=== PATIENT | female | born 1985 | race Caucasian/White ===

== ENCOUNTER 2023-05-07 13:19 | Emergency (ER) | payer OTHER, MEDICAID, SELFPAY ==
[2023-05-07 14:08] VITALS: BP 118/69; PULSE 90; RESP 18; TEMP 36.3; O2SAT 100; BMI 18.8
[2023-05-07 17:45] VITALS: BP 113/72; PULSE 77; O2SAT 100
--- NOTE | 2023-05-07 18:34 | ED_ITS ---
HPI - Skin/Abscess/Foreign Bdy <Ankush Cleveland PA-C - Last Filed: 05/07/23 18:40> General Chief complaint: Skin/Abscess/Foreign Body Stated complaint: SEVERE ITCHING,INFECTED ARE L RING FINGER Time Seen by Provider: 05/07/23 17:20 Source: patient Mode of arrival: Ambulatory Limitations: no limitations History of Present Illness HPI narrative: 38-year-old female with no reported past medical history presents to the ED with a few days of all over itching. Patient's partner was diagnosed with scabies recently, prescribe permethrin. Patient states that her partner and herself did 1 dose of the permethrin, felt better the next day, however a couple of days later the rash and itching was back. Patient denies fever, chills, chest pain, shortness of breath, nausea, vomiting, lightheadedness, dizziness, syncope, abdominal pain, dysuria. Patient states that she recently moved from [place] to [place], stopping at multiple hotels on the way, suspects she might have contracted scabies from 1 of the hotels. Patient also states that she has a retained dog hair in between 2 of her fingers of the left hand, which has been bothering her for months. Denies any discharge, redness, warmth at the site. Related Data Previous Rx's Medication Instructions Recorded ivermectin 3 mg tablet 9,979 mcg PO QWEEK 3 doses #14 tabs 05/07/23 permethrin 5 % topical cream 1 applic topical Q7D 4 days #120 05/07/23 grams Allergies Allergy/AdvReac Type Severity Reaction Status Date / Time tetracycline Allergy Vomiting Verified 05/07/23 14:08 Review of Systems <Ankush Cleveland PA-C - Last Filed: 05/07/23 18:40> Review of Systems ROS Unobtainable: All systems reviewed & are unremarkable except as noted in HPI and below Constitutional Constitutional: Denies chills, Denies fatigue, Denies fever(s), Denies frequent falls, Denies lethargy and Denies weakness Eyes Eyes: Denies change in vision, Denies eye discharge, Denies irritation and Denies loss of vision ENT Ears, Nose, Mouth, and Throat: Denies change in voice, Denies dizziness, Denies neck pain, Denies sore throat and Denies throat swelling Cardiovascular Cardiovascular: Denies chest pain, Denies irregular heart rhythm, Denies lig htheadedness, Denies palpitations, Denies dyspnea, Denies dyspnea on exertion and Denies orthopnea Respiratory Respiratory: Denies cough, Denies dyspnea, Denies dyspnea on exertion and Denies wheezing Gastrointestinal Gastrointestinal: Denies abdominal pain, Denies change in bowel habits, Denies diarrhea, Denies nausea and Denies vomiting Genitourinary Genitourinary: Denies hematuria, Denies flank pain, Denies urinary incontinence and Denies urinary urgency Musculoskeletal Musculoskeletal: Denies back pain, Denies muscle weakness, Denies neck pain, Denies numbness and Denies tingling Integumentary/Breasts Skin/Breast: Denies pruritus, Denies erythema, Reports rash and Denies wounds Neurologic Neurologic: Denies behavioral changes, Denies confusion, Denies dizziness, Denies frequent falls, Denies loss of vision, Denies numbness, Denies tingling and Denies weakness Psychiatric Psychiatric: Denies anxiety, Denies behavioral changes, Denies confusion, Denies depression, Denies homicidal ideation and Denies suicidal ideation Endocrine Endocrine: Denies fatigue, Denies flushing and Denies palpitations Hematologic/Lymphatic Hematologic/Lymphatic: Denies easy bruising Allergic/Immunologic Allergic/Immunologic: Denies urticaria, Denies throat swelling and Denies wheezing Patient History <Ankush Cleveland PA-C - Last Filed: 05/07/23 18:40> Social History Smoking Status: Former smoker Smoking Status: Former smoker Substance Use Type: does not use and marijuana Exam <Ankush Cleveland PA-C - Last Filed: 05/07/23 18:40> Narrative Exam Narrative: Const General:?cooperative, healthy appearing and comfortable [facility] Head:?normal to inspection Ears:?hearing grossly normal bilaterally Nose:?external nose normal Face and sinus:?normal facial exam and sinuses nontender Mouth:?oral mucosae normal Throat:?posterior oropharynx normal Eyes General:?appearance normal, both eyes and all related structures Neck Neck:?normal visual inspection and no lymphadenopathy noted Resp Effort & Inspection:?normal respiratory effort Auscultation:?clear to auscultation bilaterally Cardio Rate:?regular rate Rhythm:?regular rhythm Integumentary There is a diffuse all over truncal rash consistent with scabies. There is a small lump that is mildly tender to palpation in the webbing between digits 3 and 4 of the left hand where patient thinks there is a dog hair retained. There are no signs of infection. Neuro General:?patient alert, patient awake and patient oriented x3 Initial Vital Signs Initial Vital Signs: Vital Signs Temperature 97.4 F L 05/07/23 14:08 Pulse Rate 90 05/07/23 14:08 Respiratory Rate 18 05/07/23 14:08 Blood Pressure 118/69 05/07/23 14:08 Pulse Oximetry 100 05/07/23 14:08 Oxygen Delivery Method Room Air 05/07/23 14:08 <Elan Varghese MD - Last Filed: 05/08/23 07:17> Initial Vital Signs Initial Vital Signs: Vital Signs Temperature 97.4 F L 05/07/23 14:08 Pulse Rate 90 05/07/23 14:08 Respiratory Rate 18 05/07/23 14:08 Blood Pressure 118/69 05/07/23 14:08 Pulse Oximetry 100 05/07/23 14:08 Oxygen Delivery Method Room Air 05/07/23 14:08 Course <Ankush Cleveland PA-C - Last Filed: 05/07/23 18:40> Vital Signs Vital signs: Vital Signs - 8 hr 05/07/23 14:08 05/07/23 17:45 Temperature 97.4 F L Pulse Rate 90 77 Respiratory Rate 18 Blood Pressure 118/69 113/72 Pulse Oximetry 100 100 Oxygen Delivery Method Room Air Room Air <Elan Varghese MD - Last Filed: 05/08/23 07:17> Vital Signs Vital signs: Vital Signs - 8 hr 05/07/23 14:08 05/07/23 17:45 Temperature 97.4 F L Pulse Rate 90 77 Respiratory Rate 18 Blood Pressure 118/69 113/72 Pulse Oximetry 100 100 Oxygen Delivery Method Room Air Room Air MDM - Skin/Abscess/Foreign Bdy <Ankush Cleveland PA-C - Last Filed: 05/07/23 18:40> MDM Narrative Medical decision making narrative: 38-year-old female with no reported past medical history presents to the ED with a few days of all over itching. Patient's symptoms most consistent with scabies, especially given that her symptoms are worse at night. Prescribed permethrin for repeat treatments as well as ivermectin if the permethrin does not work. Recommend follow-up with supervisor blood donor recruiters for both the rash as well as the retained dog hair. No intervention indicated at this time for the dog hair, given there are no overt signs of infection. ED return precautions discussed with patient. Patient verbalized understanding. Medical records reviewed: Yes Discharge Plan Departure Patient Disposition: Home Clinical Impression: Scabies Instructions: DI for Scabies Activity Restrictions/Additional Instructions: You were evaluated in the ED today for a rash. Your rash looks most consistent with scabies. You are being prescribed permethrin and ivermectin for it. Apply the permethrin from neck down and leave on for 8-12 hours before washing off. You may repeat in a week if your symptoms still persist. You may also take ivermectin as prescribed. Return to the ED if you have worsening symptoms. Please follow-up with a supervisor blood donor recruiters regarding both the rash as well as the retained dog hair that you have in your hand. Prescriptions: New permethrin 5 % cream 1 applic topical Q7D 4 Days Qty: 120 0RF Rx Instructions: apply second treatment 14 days after first treatment if live lice remain ivermectin 3 mg tablet 9,979 mcg PO QWEEK Qty: 14 0RF Referrals: Miscellaneous,Doctor[facility] [Primary Care Provider] - Stand Alone Forms: Patient Portal/API <Elan Varghese MD - Last Filed: 05/08/23 07:17> Cosign ED Attending Costramaineature Attestation: I was immediately available in the department for consultation. ?This documentation has been reviewed and I agree with assessment and plan. Supervised by Elan Varghese MD
== END 2023-05-07 17:46 | disposition home or self-care (01) ==
PROVIDERS: Emergency Provider Student in an Organized Health Care Education/Training Program
DX: B86 Scabies (principal)
CPT/HCPCS: 99281

== ENCOUNTER 2023-09-14 11:36 | Emergency (ER) | payer OTHER, MEDICAID, SELFPAY ==
[2023-09-14] VITALS (12 sets, daily range): BP systolic 120–154; BP diastolic 56–90; PULSE 79–126; RESP 18–24; TEMP 37.7; O2SAT 98–100; BMI 18.8
--- NOTE | 2023-09-14 11:57 | ED.GENADULT ---
HPI - General Adult General Chief complaint: Urogenital-Female Stated complaint: thinks UTI Time Seen by Provider: 09/14/23 11:53 Source: patient Mode of arrival: Ambulatory History of Present Illness HPI narrative: Patient is a 38-year-old female who is here for evaluation approximately 1 week of dysuria, hesitancy, urgency. She also states they are ?speckles? in her urine. No vaginal bleeding. Has had a hysterectomy. No back pain. No nausea or vomiting. No fevers. She is sexually active with 1 partner. Is concerned about a urinary tract infection. She has had issues with tachycardia in the past. She is been sober for approximately 6 months and since that time she has had some issues with anxiety. She is feeling somewhat anxious today. She denies any palpitations or chest pain or shortness of breath. Related Data Previous Rx's Medication Instructions Recorded ivermectin 3 mg tablet 9,979 mcg PO QWEEK 3 doses #14 tabs 05/07/23 cephalexin 500 mg capsule 500 mg PO BID 5 days #10 caps 09/14/23 Allergies Allergy/AdvReac Type Severity Reaction Status Date / Time tetracycline Allergy Vomiting Verified 05/07/23 14:08 Review of Systems Constitutional Constitutional: Reports system reviewed and no additional complaints, except as documented Cardiovascular Cardiovascular: Reports system reviewed and no additional complaints, except as documented Respiratory Respiratory: Reports system reviewed and no additional complaints, except as documented Gastrointestinal Gastrointestinal: Reports system reviewed and no additional complaints, except as documented Integumentary/Breasts Skin/Breast: Reports system reviewed and no additional complaints, except as documented Neurologic Neurologic: Reports system reviewed and no additional complaints, except as documented Hematologic/Lymphatic On Anticoagulants: No Patient History Social History Smoking Status: Former smoker Smoking Status: Former smoker Substance Use Type: former substance user and marijuana Exam Initial Vital Signs Initial Vital Signs: Vital Signs Temperature 99.8 F H 09/14/23 11:39 Pulse Rate 126 H 09/14/23 11:39 Respiratory Rate 22 09/14/23 11:39 Blood Pressure 135/88 09/14/23 11:39 Pulse Oximetry 100 09/14/23 11:39 Oxygen Delivery Method Room Air 09/14/23 11:39 HENAK Head: normal to inspection and atraumatic Resp Effort & Inspection: normal respiratory effort Auscultation: clear to auscultation bilaterally Cardio Rate: tachycardic Rhythm: regular rhythm GI Inspection: normal to inspection and non-distended Neuro General: patient alert, patient awake and moves all extremities Extrem General: normal to inspection Course Orders Ordered: ED Orders 09/14/23 11:46 Chlamydia Gonorrhea PCR -URINE Stat Urinalysis and Microscopic Stat Urine Culture Stat 09/14/23 11:55 Complete Blood Count AUTO DIFF Stat Comprehensive Metabolic Panel Stat Lipase Stat Ondansetron HCl (Ondansetron 4 Mg Odt) 4 mg PO NOW PRN PRN Reason: Nausea And Vomiting Ondansetron HCl (Ondansetron 4 Mg/2 Ml Inj) 4 mg IV NOW PRN PRN Reason: Nausea And Vomiting Discontinued Medications Sodium Chloride (Normal Saline 0.9%) 1,000 mls @ 1,000 mls/hr IV BOLUS ONE Stop: 09/14/23 12:51 Last Infusion: 09/14/23 13:13 Dose: Infused Documented By: Admin: 09/14/23 12:04 Dose: 1,000 mls/hr Documented By: DANYA Vital Signs Vital signs: Vital Signs - 8 hr 09/14/23 11:39 09/14/23 11:50 09/14/23 11:50 Temperature 99.8 F H Pulse Rate 126 H 121 H Respiratory Rate 22 Blood Pressure 135/88 154/90 H Pulse Oximetry 100 99 Oxygen Delivery Method Room Air 09/14/23 12:00 09/14/23 12:15 09/14/23 12:30 Temperature Pulse Rate 122 H 92 H 90 Respiratory Rate 24 23 21 Blood Pressure Pulse Oximetry 100 100 100 Oxygen Delivery Method 09/14/23 12:45 09/14/23 13:00 09/14/23 13:15 Temperature Pulse Rate 86 85 85 Respiratory Rate 22 23 23 Blood Pressure Pulse Oximetry 100 99 98 Oxygen Delivery Method 09/14/23 13:30 09/14/23 13:45 Temperature Pulse Rate 84 84 Respiratory Rate 18 21 Blood Pressure Pulse Oximetry 98 99 Oxygen Delivery Method Medical Decision Making Lab Data Lab results reviewed: Yes I reviewed the patient's lab results. 09/14/23 11:55 09/14/23 11:55 Labs: Lab Results 09/14/23 09/14/23 Range/Units 11:46 11:55 WBC 6.5 (4.5-11.0) X10^3/uL RBC 4.66 (4.0-5.2) X10^6/uL Hgb 13.7 (12.0-16.0) g/dL Hct 41.0 (36-46) % MCV 88.0 (80-100) fL MCH 29.5 (26-34) PG MCHC 33.5 (30-36) % RDW 13.9 (11.6-14.8) % Plt Count 228 (150-400) X10^3/uL Neut % (Auto) 60.8 (50-75) % Lymph % (Auto) 31.1 (25-40) % Sandoval % (Auto) 5.2 (3-14) % Eos % (Auto) 1.9 L (2-4) % Baso % (Auto) 1.0 (0-2) % Neut # (Auto) 3900 (2851-7810) /uL Lymph # (Auto) 2000 (0943-9714) /uL Sandoval # (Auto) 300 (0-900) /uL Eos # (Auto) 100 (0-450) /uL Baso # (Auto) 100 (0-100) /uL Sodium 139 (137-145) mmol/L Potassium 3.6 (3.4-5.1) mmol/L Chloride 103 (98-107) mmol/L Carbon Dioxide 28 (22-32) mmol/L BUN 17 (7-17) mg/dL Creatinine 0.64 (0.52-1.04) mg/dL Estimated GFR > 60 (>60) mL/min BUN/Creatinine Ratio 26.6 H (6-22) Glucose 112 H (70-100) mg/dL Calcium 9.7 (8.4-10.2) mg/dL Total Bilirubin 0.7 (0.2-1.3) mg/dL AST 25 (14-36) IU/L ALT 25 (<35) IU/L Alkaline Phosphatase 33 L (38-126) U/L Total Protein 8.3 H (6.3-8.2) g/dL Albumin 4.8 (3.5-5.0) g/dL Globulin 3.5 (1.7-4.1) g/dL Albumin/Globulin Ratio 1.4 (1.0-2.8) Lipase 58 (23-300) U/L Urine Color Yellow Urine Appearance Clear Urine pH 5.5 (4.5-8.0) Ur Specific Roxton >=1.030 H (1.000-1.035) Urine Protein Trace H (Negative) Urine Glucose (UA) Negative (Negative) g/dL Urine Ketones Negative (NEGATIVE) Urine Occult Blood Trace-intact (Negative) Urine Nitrate Negative (Negative) Urine Bilirubin Negative (NEGATIVE) Urine Urobilinogen 0.2 (0.2) E.U./dL Ur Leukocyte Esterase Negative (NEGATIVE) Urine RBC 0-1/hpf (0-5/HPF) Urine WBC 5-10/hpf H (0-5/HPF) Ur Squamous Epith Cells 5-10 /hpf H (0-5/HPF) Amorphous Sediment 1+ Urine Bacteria Few (2-10) H (None) Ur Culture Indicated? Specimen cultured Ur Chlamydia DNA (PCR) Not detected N gonorrhoeae DNA (PCR) Not detected MDM Narrative Medical decision making narrative: Patient is having symptoms that would be consistent with a urinary tract infection. Her urinalysis does have white blood cells and bacteria but also epi cells. Her gonorrhea and chlamydia are negative. Low suspicion for pyelo. Is tolerating oral intake. Will treat with antibiotics. She understands that there was a urine culture pending and we will contact her if we need to change antibiotics. She was given return precautions. She expressed understanding and agreement. Discharge Plan Departure Patient Disposition: Home Clinical Impression: Urinary tract infection Instructions: DI for Urinary Tract Infection (UTI) Activity Restrictions/Additional Instructions: I do recommend that you take the antibiotics as directed. Return to the emergency department for new or worsening symptoms. Prescriptions: New cephalexin 500 mg capsule 500 mg PO BID 5 Days Qty: 10 0RF No Action ivermectin 3 mg tablet 9,979 mcg PO QWEEK Qty: 14 0RF Referrals: Miscellaneous,DoctorMD [Primary Care Provider] - Stand Alone Forms: Patient Portal/API
[2023-09-14 11:59] LABS: Appearance Urine UA CLEAR; Bilirubin Urine UA NEGATIVE (NEGATIVE); Color Urine UA YELLOW; Glucose Urine UA NEGATIVE (Negative); Ketones Urine UA NEGATIVE (NEGATIVE); Leukocyte Esterase Urine UA NEGATIVE (NEGATIVE); Nitrite Urine UA NEGATIVE (Negative); Occult Blood Urine UA TRACE-INTACT (Negative); Protein Urine UA TRACE (Negative); Specific Gravity Urine UA >=1.030 (1.000-1.035); Urobilinogen Urine UA 0.2 E.U./dL (0.2)
[2023-09-14 12:00] LABS: pH Urine UA 5.5 (4.5-8.0)
[2023-09-14 12:04] LABS: Add Manual Diff / Slide Review NO; Basophils Absolute Auto 100 /uL (0-100); Eosinophils Absolute Auto 100 /uL (0-450); Eosinophils Percent Auto 1.9 % (2-4); Hemoglobin 13.7 g/dL (12.0-16.0); Lymphocytes Absolute Auto 2000 /uL (1100-4500); Lymphocytes Percent Auto 31.1 % (25-40); Mean Corpuscular HGB Conc 33.5 % (30-36); Mean Corpuscular Hemoglobin 29.5 PG (26-34); Monocytes Absolute Auto 300 /uL (0-900); Monocytes Percent Auto 5.2 % (3-14); Neutrophils Absolute Auto 3900 /uL (1500-7000); Neutrophils Percent Auto 60.8 % (50-75); Platelet Count 228 X10^3/uL (150-400); Red Blood Cell Count 4.66 X10^6/uL (4.0-5.2); Red Cell Distribution Width 13.9 % (11.6-14.8); White Blood Cell Count 6.5 X10^3/uL (4.5-11.0)
[2023-09-14] MEDS: SODIUM CHLORIDE 0.9% 1,000 ML 1000 ML IV (12:04)
[2023-09-14 12:07] LABS: Bacteria Urine Few (2-10); RBC Urine 0-1/HPF (0-5/HPF); Squamous Epithelial Cell Urine 5-10 /HPF (0-5/HPF); WBC Urine 5-10/HPF (0-5/HPF)
[2023-09-14 12:08] LABS: Amorphous Sediment Urine 1+; Culture Indicated Urine Specimen Cultured
--- NOTE | 2023-09-14 12:08 | PC.ADMIT ---
2315 Admission Note: The patient,Anai Fofana,38 y/o, was given written information regarding hospital policies, unit procedures and contact persons. Patient's smoking status: Former smoker. Vital Signs - 8 hr 09/14/23 11:39 Temperature 99.8 F H Pulse Rate 126 H Respiratory Rate 22 Blood Pressure 135/88 Pulse Oximetry 100 Oxygen Delivery Method Room Air
--- NOTE | 2023-09-14 12:08 | PC.NURSE ---
Pt came to emergency department because she has been having increasing urinary frequency with burning and pain during urination. Pt also reports having foul smelling urine with white flecks of discharge in her urine. Pt states that she is not particularly concerned for STD because she has only had one sexual partner within the last 5 years, however; she stated you never know... 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 She often feels anxious and nervous, but this is the healthiest she has ever been. Pt HR 125, RR 20. No fever present at this time. Denies cp, sob. Pt a&ox4. [employer] OPERATOR intact.
[2023-09-14 12:17] LABS: Alanine Aminotransferase 25 IU/L (<35); Albumin 4.8 g/dL (3.5-5.0); Albumin Globulin Ratio 1.4 (1.0-2.8); Alkaline Phosphatase 33 U/L (38-126); Aspartate Aminotransferase 25 IU/L (14-36); BUN Creatinine Ratio 26.6 (6-22); Bilirubin Total 0.7 mg/dL (0.2-1.3); Blood Urea Nitrogen 17 mg/dL (7-17); Calcium 9.7 mg/dL (8.4-10.2); Carbon Dioxide 28 mmol/L (22-32); Chloride 103 mmol/L (98-107); Estimated Glomerular Filt Rate > 60 mL/min (>60); Globulin 3.5 g/dL (1.7-4.1); Glucose 112 mg/dL (70-100); HEMOLYSIS < 15 (0-50); Lipase 58 U/L (23-300); Potassium 3.6 mmol/L (3.4-5.1); Sodium 139 mmol/L (137-145); Total Protein 8.3 g/dL (6.3-8.2)
[2023-09-14 14:04] LABS: Urine Chlamydia NOT DETECTED; Urine N gonorrhoeae NOT DETECTED
== END 2023-09-14 14:22 | disposition home or self-care (01) ==
PROVIDERS: Emergency Provider Emergency Medicine
DX: N39.0 Urinary tract infection, site not specified (principal)
CPT/HCPCS: 36415; 80053; 81001; 83690; 85025; 87086; 87491; 87591; 96361; 96374; 99284

== ENCOUNTER 2023-09-28 11:08 | Emergency (ER) | payer OTHER, MEDICAID, SELFPAY ==
[2023-09-28 11:19] VITALS: BP 153/87; PULSE 98; RESP 16; TEMP 37; O2SAT 100; BMI 18.8
--- NOTE | 2023-09-28 11:39 | ED.RECABL ---
HPI - Recheck/Abnormal Lab/Rx <Brianna Gomez PA-C - Last Filed: 09/28/23 12:10> General Chief Complaint: Recheck/Abnormal Lab/Rx Stated Complaint: new med complications/ dizzy Time Seen by Provider: 09/28/23 11:36 Source: patient Mode of arrival: Ambulatory History of Present Illness HPI narrative: 38 yo F presents with concern for possible medication reaction and worsening stye. Pt was seen in this ER a few weeks ago with concern for UTI, started on Cephalexin but was switched to Flagyl after culture results returned. She has been experiencing some racing heart since taking the flagyl. She does have some history of anxiety issues and rapid heart rate. But states since she started taking the Flagyl she is been waking up at night feeling like her heart is racing. She states right after she takes it she also feels a little bit of nausea and dizziness. She says her urinary symptoms and vaginal symptoms have resolved completely and initially she had about 1 day of mild vaginal discharge but otherwise mostly was experiencing urgency and frequency of urination. She states the symptoms resolved completely after the cephalexin but she took the Flagyl as prescribed any ways. She denies syncope, persistent dizziness or lightheadedness or tachycardia or palpitations or any other symptoms, also denies urgency, frequency, pelvic flank or abdominal pain. She also is here today because she is concerned that she has possibly a stye on her left upper eyelid she says she is had this present for a few months started as a bump under her eyelid that was noticeable but not particularly painful. It has come and gone and been larger and smaller a various times over the past few months. In the last 5 days since she is been taking the Flagyl she feels it has gotten bigger in size she is been using warm compresses with limited improvement. She is not had any fevers or chills or generalized swelling around the eye or any eye pain or vision change. She has not seen anyone for this previously. Related Data Previous Rx's Medication Instructions Recorded ivermectin 3 mg tablet 9,979 mcg PO QWEEK 3 doses #14 tabs 05/07/23 [id number] 3.5 2 drp EYE-LEFT Q6H persistent stye 09/28/23 mg/mL-10,000 unit/mL-0.1% eye drops 7 days #5 mL Allergies Allergy/AdvReac Type Severity Reaction Status Date / Time tetracycline Allergy Vomiting Verified 05/07/23 14:08 Review of Systems <Brianna Gomez PA-C - Last Filed: 09/28/23 12:10> Review of Systems Narrative: See HPI Patient History <Brianna Gomez PA-C - Last Filed: 09/28/23 12:10> Social History Smoking Status: Former smoker Smoking Status: Former smoker Substance Use Type: former substance user and marijuana Exam <Brianna Gomez PA-C - Last Filed: 09/28/23 12:10> Narrative Exam Narrative: GENERAL: [38] year old patient appears stated age. Well-developed patient, in mild distress, generally well-appearing nontoxic. HEAD: Atraumatic. Normocephalic. EYES: Pupils equal round and reactive. There is an external hordeolum on the lateral aspect of the upper eyelid above the lid/lash margin. It is slightly tender to touch without fluctuance. Approximately 3-5 mm in diameter. With eversion of the eyelid there is a visible white bulge on the anterior aspect of the lid at the same location. There is no drainage or open wound skin and mucous membranes are intact. Extraocular motions intact. No scleral icterus. No injection or drainage. ENT: Nose without bleeding, purulent drainage. Airway patent. NECK: Trachea midline. Non tender CARDIOVASCULAR: Regular rate and rhythm without murmurs, gallops, or rubs. RESPIRATORY: Clear to auscultation. Breath sounds equal bilaterally. No wheezes, rales, or rhonchi. EXTREMITIES: Moving all extremities normal gait NEURO: AOx3. SKIN: No rash or erythema of visible areas Initial Vital Signs Initial Vital Signs: Vital Signs Temperature 98.6 F 09/28/23 11:19 Pulse Rate 98 H 09/28/23 11:19 Respiratory Rate 16 09/28/23 11:19 Blood Pressure 153/87 H 09/28/23 11:19 Pulse Oximetry 100 09/28/23 11:19 Oxygen Delivery Method Room Air 09/28/23 11:19 <Chanell Jones DO - Last Filed: 09/29/23 07:06> Initial Vital Signs Initial Vital Signs: Vital Signs Temperature 98.6 F 09/28/23 11:19 Pulse Rate 98 H 09/28/23 11:19 Respiratory Rate 16 09/28/23 11:19 Blood Pressure 153/87 H 09/28/23 11:19 Pulse Oximetry 100 09/28/23 11:19 Oxygen Delivery Method Room Air 09/28/23 11:19 Course <Brianna Gomez PA-C - Last Filed: 09/28/23 12:10> Vital Signs Vital signs: Vital Signs - 8 hr 09/28/23 11:19 Temperature 98.6 F Pulse Rate 98 H Respiratory Rate 16 Blood Pressure 153/87 H Pulse Oximetry 100 Oxygen Delivery Method Room Air <Chanell Jones DO - Last Filed: 09/29/23 07:06> Vital Signs Vital signs: Vital Signs - 8 hr 09/28/23 11:19 Temperature 98.6 F Pulse Rate 98 H Respiratory Rate 16 Blood Pressure 153/87 H Pulse Oximetry 100 Oxygen Delivery Method Room Air MDM - Recheck/Abnormal Lab/Rx <Brianna Gomez PA-C - Last Filed: 09/28/23 12:10> Medical Records Attestation: I reviewed the patient's medical records. Treatment and disposition Shared decision making:: Shared decision-making was used to determining plan for change in medication and outpatient follow-up MDM Narrative Medical decision making narrative: This is a 38-year-old woman who presented today with concern for a worsening stye present for 2 months and a possible medication reaction to Flagyl. On Flagyl for 5 days and symptoms of waking up with heart racing and feeling anxious also some mild nausea and dizziness after taking the medication each time. Do suspect that this patient's symptoms are a reaction to the medication and talked to her about options including continuing it despite these symptoms, cutting the medication in half or stopping it completely. She has had 4 days of the medicine and is being treated based on culture results showing G vaginalis and suspicion for bacterial vaginosis. She was seen in this emergency department on September 14 2 weeks ago and at that time diagnosed with UTI and started on cephalexin. Her urinary and vaginal symptoms did resolve completely after she finished her course of cephalexin but was instructed to initiate the Flagyl due to concern for bacterial vaginosis based on culture results. After discussion patient prefers to try cutting the medication in half doing a half dose today she states that she still having bothersome symptoms she will stop it completely tomorrow otherwise she will continue for the 7 day course with a half dose. She is advised to follow up closely with PCP, consider seeing an frozen food department manager or automatic wheel line operator for her eye if it is not improving with the medications. She is prescribed topical antibiotic eyedrops today given duration of her stay and recent worsening. There is no evidence of generalized eye infection and exam is consistent with a stye however it is unusual the patient has had this for so long. Follow-up plan discussed, Return precautions provided, ED precautions provided, all questions answered. Discharge Plan Departure Patient Disposition: Home Clinical Impression: Hordeolum externum of left eye Qualifiers: Eyelid: upper Qualified Code(s): H00.014 - Hordeolum externum left upper eyelid Medication adverse effect Qualifiers: Encounter type: initial encounter Qualified Code(s): T50.905A - Adverse effect of unspecified drugs, medicaments and biological substances, initial encounter Activity Restrictions/Additional Instructions: *You have been diagnosed with [stye/hordeolum, medication reaction] *What to do: *Please continue to take your regular medications as directed. [ 1] New medication prescriptions sent to your pharmacy: [Antibiotic eyedrops] [ ] New medication written as a paper prescription [ ] No new medications given *Please follow up with your primary care provider in 2-3 days, call for an appointment. Let them know you were seen in the Emergency Department and that we ask that you be seen in follow up. We will electronically transmit a record of today's note if your PCP is in our system. Regarding your eye please use the medication as prescribed the straps do need to go in the eye it is okay to put a drop topically externally over the mass on the outside of your eyelid as well. Please use these as prescribed for the entire course (7 days). If you are worsening or you are not improving I strongly recommend you see an eye doctor certainly you state you have had this spot on your eye for months now even though it has changed some and has gotten better and worse at different times it does look like a stye; it is advisable to see a specialist for further evaluation if it does not resolve with this medication. A automatic wheel line operator as another potential option. Regarding your symptoms of feeling heart racing and dizziness I do suspect this is related to the medication you have been taking recently, Flagyl for suspected bacterial vaginosis. After discussion we are going to try to cut back the dose in half but continue it for the full 7 days. If you do continue to have these bothersome symptoms it is reasonable to stop it completely but please be aware there is a chance that your infection may not be fully treated and you could develop symptoms again. I am glad that overall your UTI type symptoms and vaginal symptoms have resolved. I recommend you follow up with your primary care provider. *If you do not have a primary care provider please contact the [facility] Resource line at [phone]. They will ask some questions about your medical history and help get you set up with a doctor in the community. *Return to Emergency Department if you should have any new, worsening or concerning symptoms, such as [fever greater than 101 F, shaking chills, worsening pain, persistent vomiting or other bothersome symptoms] Prescriptions: New neomycin-polymyxin B-dexameth 3.5mg/mL-10,000 unit/mL-0.1 % drops,suspension 2 drp EYE-LEFT Q6H 7 Days Qty: 5 0RF No Action ivermectin 3 mg tablet 9,979 mcg PO QWEEK Qty: 14 0RF Referrals: Miscellaneous,Doctor, [Primary Care Provider] - Stand Alone Forms: Patient Portal/API ED Sign-out <Chanell Jones DO - Last Filed: 09/29/23 07:06> Cosign ED Attending Gerhard Attestation: I was available for consultation.
== END 2023-09-28 12:03 | disposition home or self-care (01) ==
PROVIDERS: Emergency Provider Student in an Organized Health Care Education/Training Program
DX: R42 Dizziness and giddiness (principal); R11.0 Nausea; T37.3X5A Adverse effect of other antiprotozoal drugs, initial encounter; H00.014 Hordeolum externum left upper eyelid
CPT/HCPCS: 99281

== ENCOUNTER 2023-10-03 08:56 | Emergency (ER) | payer OTHER, MEDICAID, SELFPAY ==
[2023-10-03 09:02] VITALS: BP 125/77; PULSE 131; RESP 18; TEMP 36.6; O2SAT 100; BMI 18.8
--- NOTE | 2023-10-03 09:19 | DI.RAD.S_ITS ---
PROCEDURE: XR CHEST 1V INDICATIONS: SOB TECHNIQUE: One view of the chest was acquired. COMPARISON: None. FINDINGS: Surgical changes and devices: None. Lungs and pleura: Lungs are clear. No pleural effusions or pneumothorax. Mediastinum: Mediastinal contours appear normal. Heart size is normal. Bones and chest wall: No suspicious bony lesions. Overlying soft tissues appear unremarkable. IMPRESSION: No acute cardiopulmonary abnormality is seen. Dictated by: Tomy Sinclair M.D. on 10/03/2023 at 9:44 Approved by: Tomy Sinclair M.D. on 10/03/2023 at 9:44
--- NOTE | 2023-10-03 09:24 | ED_ITS ---
HPI - General Adult General Chief complaint: Urogenital-Female Stated complaint: poss uti, diff breathing Time Seen by Provider: 10/03/23 09:15 Source: patient Mode of arrival: Ambulatory History of Present Illness HPI narrative: 38-year-old female who is here for evaluation of rectal itching, irritation when she urinates, shortness of breath. No fevers. No headache. No sore throat. No diarrhea. She was recently treated for urinary tract infection and then was placed on Flagyl. She seems to think that all her symptoms started when she was taking the Flagyl. She is since quit although she continues to have quite a bit of rectal irritation and perineal irritation. She was initially concerned that she has pinworms or potentially some other parasite that has moved to her heart and lungs. Related Data Previous Rx's Medication Instructions Recorded ivermectin 3 mg tablet 9,979 mcg PO QWEEK 3 doses #14 tabs 05/07/23 [id number]-iqbtuwga 3.5 2 drp EYE-LEFT Q6H persistent stye 09/28/23 mg/mL-10,000 unit/mL-0.1% eye drops 7 days #5 mL albendazole 200 mg tablet 400 mg (2 x 200 mg) PO Q2W 2 doses 10/03/23 #4 tabs Allergies Allergy/AdvReac Type Severity Reaction Status Date / Time tetracycline Allergy Vomiting Verified 10/03/23 09:26 Review of Systems Constitutional Constitutional: Reports system reviewed and no additional complaints, except as documented Gastrointestinal Gastrointestinal: Reports system reviewed and no additional complaints, except as documented Comments: Rectal exam shows no erythema. No pinworms noted. No other lesions noted. Genitourinary Genitourinary: Reports system reviewed and no additional complaints, except as documented Comments: External vaginal exam appears well. No abnormalities noted. Integumentary/Breasts Skin/Breast: Reports system reviewed and no additional complaints, except as documented Patient History Social History Smoking Status: Former smoker Smoking Status: Former smoker Substance Use Type: former substance user and marijuana Exam Initial Vital Signs Initial Vital Signs: Vital Signs Temperature 98 F 10/03/23 09:02 Pulse Rate 131 H 10/03/23 09:02 Respiratory Rate 18 10/03/23 09:02 Blood Pressure 125/77 10/03/23 09:02 Pulse Oximetry 100 10/03/23 09:02 Oxygen Delivery Method Room Air 10/03/23 09:02 HENMT Head: normal to inspection and normocephalic Resp Effort & Inspection: normal respiratory effort Auscultation: clear to auscultation bilaterally Cardio Rate: tachycardic Rhythm: regular rhythm GI Inspection: non-distended Psych Other: Very anxious Course Orders Ordered: ED Orders 10/03/23 09:19 XR chest 1V Stat EKG-12 Lead Stat 10/03/23 09:22 Covid-19 + FLU A/B + RSV - PCR Stat Vital Signs Vital signs: Vital Signs - 8 hr 10/03/23 09:02 Temperature 98 F Pulse Rate 131 H Respiratory Rate 18 Blood Pressure 125/77 Pulse Oximetry 100 Oxygen Delivery Method Room Air Medical Decision Making Lab Data Lab results reviewed: Yes I reviewed the patient's lab results. Labs: Lab Results 10/03/23 Range/Units 09:22 SARS-CoV-2 (PCR) Negative (Negative) Influenza A (RT-PCR) Flu a negative (NEGATIVE) Influenza B (RT-PCR) Flu b negative (NEGATIVE) RSV (PCR) Negative (Negative) Point of Care Testing Test Results Negative Urine Dip Bedside Urine Glucose Negative Bedside Urine Bilirubin - Negative Bedside Urine Ketone - Negative Urine Specific Morrill 1.015 Bedside Urine Occult Blood - Negative Bedside Urine pH 6 Bedside Urine Protein - Negative Bedside Urine Urobilinogen - Negative Bedside Urine Nitrite - Negative Bedside Urine Leukocytes - Negative Esterase Point of care testing: Point of Care Testing Test Results Negative Urine Dip Bedside Urine Glucose Negative Bedside Urine Bilirubin - Negative Bedside Urine Ketone - Negative Urine Specific Morrill 1.015 Bedside Urine Occult Blood - Negative Bedside Urine pH 6 Bedside Urine Protein - Negative Bedside Urine Urobilinogen - Negative Bedside Urine Nitrite - Negative Bedside Urine Leukocytes - Negative Esterase Imaging Data Chest x-ray: Radiologist's Impression: PROCEDURE: XR CHEST 1V INDICATIONS: SOB TECHNIQUE: One view of the chest was acquired. COMPARISON: None. FINDINGS: Surgical changes and devices: None. Lungs and pleura: Lungs are clear. No pleural effusions or pneumothorax. Mediastinum: Mediastinal contours appear normal. Heart size is normal. Bones and chest wall: No suspicious bony lesions. Overlying soft tissues appear unremarkable. IMPRESSION: No acute cardiopulmonary abnormality is seen. ECG Data Attestation: I personally reviewed and interpreted this ECG as follows: Interpretation: Sinus tachycardia Ventricular rate 101 Normal axis Right bundle-branch block QTC [address] T wave changes MDM Narrative Medical decision making narrative: Chest x-ray and EKG are unremarkable. She has a normal external rectal and vaginal exam. Patient states she is having a lot of rectal itching. She stated that earlier today she did see what appeared to be white thread like objects on her dark-colored closed. As far as her respiratory status goes. Not ACS. Not pneumonia. Her COVID and flu were negative. No indication for antibiotics. With regard to her rectal itching. Informed her that I could not definitively say that she had pinworms although her history would be consistent with this and if in fact she did see thread like objects in her close this would be consistent with pinworms. We discussed the risks and benefits of presumptively treating her for this. She states she would like to be treated. A prescription was sent to the pharmacy of her choice. She was given return precautions she expressed understanding and agreement with plan. Discharge Plan Departure Patient Disposition: Home Clinical Impression: Anal pruritus, Shortness of breath Activity Restrictions/Additional Instructions: Based on our discussion today we are going to presumptively treat you for pinworms. You do need to understand that I can not definitively state that that is what is going on however your history would be consistent with it. Take the medications as directed. Contact your primary doctor for a follow-up. Prescriptions: New albendazole 200 mg tablet 400 mg PO Q2W Qty: 4 0RF Rx Instructions: must administer with food, preferably a high-fat meal No Action ivermectin 3 mg tablet 9,979 mcg PO QWEEK Qty: 14 0RF neomycin-polymyxin B-dexameth 3.5mg/mL-10,000 unit/mL-0.1 % drops,suspension 2 drp EYE-LEFT Q6H 7 Days Qty: 5 0RF Referrals: Miscellaneous,Doctor, MD [Primary Care Provider] - Stand Alone Forms: Patient Portal/API
[2023-10-03 09:31] VITALS: PULSE 86; RESP 18; O2SAT 98
[2023-10-03 10:10] LABS: Influenza A - CEPHEID Flu A NEGATIVE (NEGATIVE); Influenza B - CEPHEID Flu B NEGATIVE (NEGATIVE); Respiratory Syncytial Virus Negative (Negative)
[2023-10-03 10:14] LABS: COVID-19 CEPHEID 4-PLEX PCR Negative (Negative)
--- NOTE | 2023-10-03 10:24 | PC.NURSE ---
This RN at bedside with Dr. Foster. Dr. Foster gave rectal exam and pt tolerated well.
[2023-10-03 10:32] VITALS: BP 107/63; PULSE 87; RESP 18; O2SAT 96
== END 2023-10-03 10:52 | disposition home or self-care (01) ==
PROVIDERS: Emergency Provider Emergency Medicine
DX: L29.0 Pruritus ani (principal); R06.02 Shortness of breath; Z20.822 Contact with and (suspected) exposure to COVID-19
CPT/HCPCS: 0241U; 71045; 81003; 81025; 93005; 93010; 99283; 99284

== ENCOUNTER → 2023-12-06 17:01 | Outpatient (CLI) | payer OTHER, MEDICAID, SELFPAY ==
[2023-12-06 17:16] LABS: Add Manual Diff / Slide Review NO; Basophils Absolute Auto 100 /uL (0-100); Basophils Percent Auto 0.9 % (0-2); Eosinophils Absolute Auto 100 /uL (0-450); Eosinophils Percent Auto 1.1 % (2-4); Hemoglobin 13.5 g/dL (12.0-16.0); Lymphocytes Absolute Auto 1700 /uL (1100-4500); Lymphocytes Percent Auto 20.4 % (25-40); Mean Corpuscular HGB Conc 33.8 % (30-36); Mean Corpuscular Hemoglobin 29.6 PG (26-34); Mean Corpuscular Volume 87.7 fL (80-100); Monocytes Absolute Auto 400 /uL (0-900); Monocytes Percent Auto 5.1 % (3-14); Neutrophils Absolute Auto 6200 /uL (1500-7000); Neutrophils Percent Auto 72.5 % (50-75); Platelet Count 213 X10^3/uL (150-400); Red Blood Cell Count 4.57 X10^6/uL (4.0-5.2); Red Cell Distribution Width 13.3 % (11.6-14.8); White Blood Cell Count 8.5 X10^3/uL (4.5-11.0)
[2023-12-06 17:45] LABS: Alanine Aminotransferase 20 IU/L (<35); Albumin 4.6 g/dL (3.5-5.0); Albumin Globulin Ratio 1.2 (1.0-2.8); Alkaline Phosphatase 43 U/L (38-126); Aspartate Aminotransferase 24 IU/L (14-36); BUN Creatinine Ratio 29.3 (6-22); Bilirubin Total 0.7 mg/dL (0.2-1.3); Blood Urea Nitrogen 17 mg/dL (7-17); Calcium 9.7 mg/dL (8.4-10.2); Carbon Dioxide 25 mmol/L (22-32); Chloride 104 mmol/L (98-107); Estimated Glomerular Filt Rate > 60 mL/min (>60); Globulin 3.7 g/dL (1.7-4.1); Glucose 94 mg/dL (70-100); HEMOLYSIS < 15 (0-50); Potassium 4.3 mmol/L (3.4-5.1); Sodium 138 mmol/L (137-145); Total Protein 8.3 g/dL (6.3-8.2)
[2023-12-06 18:00] LABS: Vitamin D 25 Hydroxy (D3) 22.5 ng/mL (30.0-100.0)
[2023-12-06 18:15] LABS: TSH w/ Reflex to FT4 1.74 uIU/mL (0.47-4.68)
[2023-12-09 19:47] LABS: Hep C Virus Ab w/Reflex Quant NEGATIVE s/c (NEGATIVE)
== END ==
PROVIDERS: PCP Nurse Practitioner Family; Referring Provider Nurse Practitioner Family; Visit Provider Nurse Practitioner Family
DX: R53.83 Other fatigue (principal)
CPT/HCPCS: 36415; 80053; 82306; 84443; 85025; 86803

== ENCOUNTER 2025-04-15 22:07 | Emergency (ER) | payer OTHER, MEDICAID, SELFPAY ==
[2025-04-15 22:27] VITALS: BP 125/77; PULSE 115; RESP 20; TEMP 37; O2SAT 100; BMI 19.7
[2025-04-15 22:44] LABS: Strep Grp A by PCR Rapid Negative (Negative)
--- NOTE | 2025-04-16 00:29 | ED.GENADULT ---
HPI - General Adult General Chief complaint: Upper Respiratory Symptoms Stated complaint: Lumps in throat and on tongue [id number] Time Seen by Provider: 04/15/25 23:40 Source: patient Mode of arrival: Ambulatory History of Present Illness HPI narrative: 40-year-old female complains of pharyngitis and change in voice over the last couple of weeks, history of acid reflux, reportedly takes yacw-jud-[id number] antacids, no prior nasopharyngoscopy diagnosis. She had had a course of penicillin for possible clinical diagnosis of pharyngitis last week, not improving. She feels that there some bump changes in the lower part of her tongue of concern. She can swallow and move her neck well. No external neck masses. No injury or trauma to the neck or face. No change in medications. Recent singing activities. Related Data Allergies Allergy/AdvReac Type Severity Reaction Status Date / Time tetracycline Allergy Vomiting Verified 04/15/25 22:27 metronidazole (From Flagyl) AdvReac Intermediate anxiety, Verified 04/15/25 22:27 lack of sleep, stomach upset Patient History Medical History (Updated 04/16/25 @ 00:53 by Caleb Melgar MD) Vitamin D deficiency Cervical muscle pain Back Pain GODWIN (generalized anxiety disorder) Surgical History (Updated 12/20/23 @ 21:04 by Becky Houston) Anesthesia S/P tendon repair (~11/2020) History of hysterectomy (~12/2022) tobacco type: e-cigarettes and vaping Exam Narrative Exam Narrative: GENERAL: Well-developed patient, in mild distress. Slight hoarse voice. HEAD: Atraumatic. Normocephalic. EYES: Pupils equal round and reactive. Extraocular motions intact. No scleral icterus. No injection or drainage. ENT: Nose without bleeding, purulent drainage. Throat without erythema, tonsillar hypertrophy or exudate. Airway patent. Unremarkable visible oropharynx, normal posterior neck taste buds appearance to my exam, no ulcerations or vesicles or exudates. No candidal like plaques. NECK: Trachea midline. Non tender CARDIOVASCULAR: Regular rate and rhythm without murmurs, gallops, or rubs. RESPIRATORY: Clear to auscultation. Breath sounds equal bilaterally. No wheezes, rales, or rhonchi. GASTROINTESTINAL: Abdomen soft, non-tender, nondistended. EXTREMITIES: No edema or joint tenderness. BACK: Nontender without deformity or crepitance. No flank tenderness. NEURO: AOx3. Motor functions grossly nonfocal. SKIN: No rash or erythema of visible areas Initial Vital Signs Initial Vital Signs: Vital Signs Temperature 98.6 F 04/15/25 22:27 Pulse Rate 115 H 04/15/25 22:27 Respiratory Rate 20 04/15/25 22:27 Blood Pressure 125/77 04/15/25 22:27 Pulse Oximetry 100 04/15/25 22:27 Oxygen Delivery Method Room Air 04/15/25 22:27 Course Orders Ordered: ED Orders 04/15/25 22:32 Strep Grp A by PCR Rapid Stat 04/16/25 00:32 Covid-19 + FLU A/B + RSV - PCR Stat Vital Signs Vital signs: Vital Signs - 8 hr 04/15/25 22:27 04/16/25 00:57 Temperature 98.6 F Pulse Rate 115 H 99 H Respiratory Rate 20 18 Blood Pressure 125/77 121/75 Pulse Oximetry 100 100 Oxygen Delivery Method Room Air Room Air Medical Decision Making Lab Data Lab results reviewed: Yes I reviewed the patient's lab results. Lab results narrative: Strep screen negative. Throat culture backup is pending. COVID/flu swab pending Labs: Lab Results 04/15/25 04/16/25 Range/Units 22:32 00:32 SARS-CoV-2 (PCR) Negative (Negative) Influenza A (RT-PCR) Flu a negative (NEGATIVE) Influenza B (RT-PCR) Flu b negative (NEGATIVE) RSV (PCR) Negative (Negative) Group A Strep (PCR) Negative (Negative) MDM Narrative Medical decision making narrative: Change in voice with sore throat symptoms, possibly related to acid reflux. Recent course of penicillin not helping. No injury or trauma new activities. Unremarkable oropharyngeal exam. Patient had some concern about bumps on base of her tongue, but to my exam this appeared to be normal posterior lingual papillae. No obvious oral/lingual/palatal/tonsillar ulcerations or exudates, No obvious oral candidal changes. Normal neck range of motion. Slight hoarse phos noted. She had been seeing lately, consider overuse. Consider otolaryngology for direct GRAPHICS SOFTWARE ENGINEER examination. Contact information provided for Dr. Xavier fonseca, who has some Clinic in the [facility]. Patient lives in [place]. Continue taking dydh-yod-xhqsvtk antacid for now. Throat culture sent as a backup, strep screen was negative, though bacterial infection seems less likely by history and examination at this time. Advised use of zepv-ijq-hvyyjyu Tylenol as needed for discomfort. Avoid NSAIDs that might worsen GE reflux symptoms. Also advised avoidance of carbonated beverages, alcohol, caffeinated products, that might also exacerbate her reflux symptoms. Discharged home with family. Return precautions discussed. Discharge Plan Departure Patient Disposition: Home Clinical Impression: Laryngitis Activity Restrictions/Additional Instructions: Hoarseness of voice, unclear etiology. Recent course of penicillin antibiotic was not apparently helpful. Consider erosions due to gastroesophageal reflux. Take/continue use of vkrs-nku-qysqqoi regular scheduled omeprazole or similar antacid for now. Normal dermal papillae to the base of the tongue on my examination, those are normal-appearing large posterior segment taste buds. I could not really see any exudates or ulcerations or candidal plaques. Strep screen was negative, throat culture done as a backup routinely through the lab, check results of throat culture in the next couple of days. Consider follow up with your regular doctor on Saturday. Consider otolaryngology consultation, for possible direct visualization with flexible nasopharyngeal scope, to look at the vocal cords and posterior pharyngeal oropharyngeal structures. Contact information given for Dr. Park of Otolaryngology, who has office in [facility]. Consider avoiding things that are known to be worsening agents for gastroesophageal reflux. Avoid alcohol, carbonated beverages, Motrin, Aleve, naproxen, caffeinated products. Referrals: Zachary Park MD [Physician, Ear, Nose, Throat] Maureen Danielle FNP-BC [Primary Care Provider, [facility]] Stand Alone Forms: Patient Portal/API
[2025-04-16 00:57] VITALS: BP 121/75; PULSE 99; RESP 18; O2SAT 100
[2025-04-16 01:15] LABS: Influenza A - CEPHEID Flu A NEGATIVE (NEGATIVE); Influenza B - CEPHEID Flu B NEGATIVE (NEGATIVE)
[2025-04-16 01:22] LABS: COVID-19 CEPHEID 4-PLEX PCR Negative (Negative)
== END 2025-04-16 00:57 | disposition home or self-care (01) ==
PROVIDERS: Emergency Provider Emergency Medicine; PCP Nurse Practitioner Family
DX: J04.0 Acute laryngitis (principal)
CPT/HCPCS: 87637; 87651; 99281; 99282

== ENCOUNTER 2025-10-01 18:22 | Emergency (ER) | payer OTHER, SELFPAY ==
--- OUTSIDE RECORDS SUMMARY | 2025-10-01 18:24 | XMS_ITS | Clinical Summary ---
Author Organization [facility] [place] [address] [place] [address] Care Team Providers Care Manager Professional Development Name Role Phone Unavailable Primary Care Provider Unavailabl e Allergies Active Allergy Reactions Criticality Noted Date Comments Metronidazole GI:Nausea/vomiting 05/07/2024 Tetracycline Other 05/07/2024 Stomach upset Medications No known medications Active Problems No known active problems Social History Tobacco Use Types Packs/Day Years Used Date Smoking Tobacco: Former Cigarettes Tobacco Cessation:Counseling Given: Not Answered Alcohol Use Standard Drinks/Week Comments Never 0 (1 standard drink = 0.6 oz pur e alcohol) Comments Unknown Sex and Gender Information Value Date Recorded Sex Assigned at Not on file Legal Sex Female 8:23 AM PST Gender Identity Not on file Sexual Orientation Not on file Last Filed Vital Signs Vital Sign Reading Time Taken Comments Blood Pressure 96/59 05/07/2024 10:04 AM PDT Pulse 70 05/07/2024 10:04 AM PDT Temperature - - Respiratory Rate 22 05/07/2024 9:58 AM PDT Oxygen Saturation 98% 05/07/2024 10:04 AM PDT room air Inhaled Oxygen Concentration - - Weight - - Height - - Body Mass Index - - Plan of Treatment Health Maintenance Due Date Last Done Comments Hepatitis C Screening 1987 Depression Screening (PHQ-2) 1999 HIV Screening 2002 Hepatitis B Vaccine (1 of 3 - 19+ 3-dose series) 2006 Cervical Cancer Screening 02/01/2012 HPV Self Collect 02/01/2012 HPV 02/01/2012 Pap 02/01/2012 COVID-19 Vaccine (2024-2 6 season) 2025 Influenza Vaccine (#1) 2025 DTaP, Tdap and Td Vaccines ( 3 - Td or Tdap) 10/17/2031 10/17/2021, 11/25/2011 HPV Vaccine (No Doses Required) Completed Hepatitis A Vaccine Aged Out No longe r eligible based on patient's age to complete this topic Meningococcal B Vaccine Aged Out No l onger eligible based on patient's age to complete this topic Pneumococcal Vaccine: Pediatrics (0-5 years) and At-Risk Patients (6-49 years) Aged Out No longer eligible based on patient's age to complete this topic Insurance [facility] MEDICAID
--- NOTE | 2025-10-01 18:29 | ED.SKABFB ---
HPI - Skin/Abscess/Foreign Bdy General Chief complaint: Extremity Injury, Upper Stated complaint: Hair embedded in hand, infected. Sent by PCP Time Seen by Provider: 10/01/25 18:27 History of Present Illness HPI narrative: 40-year-old female patient with a history of anxiety, PTSD and insomnia with a previous history of opiate dependence and tapering off Suboxone 3 years ago. She complains of a tender lump in the left hand which has been present off and on for least a year or 2 and became worse 2 weeks ago and her doctor incised it and put her on antibiotics. That helped but now it is back and tender. She has a color grinder and she believes that a dog here got caught in her hand. This is in the interspace between the 3rd and 4th fingers/knuckles. She is dismissed cigarettes and now vapes daily. She uses alcohol and marijuana occasionally. She is currently on propranolol to control tachycardia and anxiety. Related Data Previous Rx's ?Medication ?Instructions ?Recorded propranolol 10 mg tablet 10 mg PO BID #30 tabs 09/22/25 Allergies Allergy/AdvReac Type Severity Reaction Status Date / Time tetracycline Allergy Vomiting Verified 09/22/25 14:26 metronidazole (From Flagyl) AdvReac Intermediate anxiety, Verified 09/22/25 14:26 lack of sleep, stomach upset Review of Systems Review of Systems ROS Unobtainable: All systems reviewed & are unremarkable except as noted in HPI and below Musculoskeletal Musculoskeletal: Reports as per HPI Integumentary/Breasts Skin/Breast: Reports as per HPI Psychiatric Psychiatric: Reports as per HPI Patient History Medical History (Updated 10/01/25 @ 19:20 by Bernardino Lares MD) Foreign body (FB) in soft tissue Vitamin D deficiency Cervical muscle pain Back Pain GODWIN (generalized anxiety disorder) Surgical History Anesthesia S/P tendon repair (~11/2020) History of hysterectomy (~12/2022) tobacco type: e-cigarettes and vaping Exam Narrative Exam Narrative: General: Alert and conversant. No distress. Mild anxiety. Appears well nourished and well hydrated Lungs: Clear to auscultation with good air movement. No wheezing, rales or rhonchi. No respiratory distress Cardiac: Tachycardia with regular rhythm with no appreciable murmur or gallop Musculoskeletal: There is a mildly tender pustule on the dorsum of the hand between the 3rd and 4th knuckles. Otherwise, Exam of the extremities, axial spine and ribcage reveals no deformity, bony tenderness or swelling. Range of motion intact Neuro: Alert and oriented. Skin: See musculoskeletal. Otherwise skin is Warm and normal color. No rashes Psychological: Normal affect and interaction. No evidence of delusion or psychosis. Normal mood. Initial Vital Signs Initial Vital Signs: Vital Signs Temperature 98.9 F 10/01/25 18:30 Pulse Rate 121 H 10/01/25 18:30 Respiratory Rate 16 10/01/25 18:30 Blood Pressure 121/82 10/01/25 18:30 Pulse Oximetry 99 10/01/25 18:30 Oxygen Delivery Method Room Air 10/01/25 18:30 Procedures Abscess I/D I&D #1: Time of procedure: 19:20 Site: hand Side (if applicable): left Local Anesthetic: lidocaine 1% Amount of anesthesia used (mL): 1 Technique: incised with #11 blade Amount of fluid expressed (mL): 2 Irrigation: Yes Packing used?: plain (Quarter-inch) Course Vital Signs Vital signs: Vital Signs - 8 hr 10/01/25 18:30 10/01/25 18:51 10/01/25 18:53 Temperature 98.9 F Pulse Rate 121 H 109 H Pulse Rate [Left Radial] 100 H Respiratory Rate 16 14 Blood Pressure 121/82 130/80 Pulse Oximetry 99 98 Oxygen Delivery Method Room Air 10/01/25 19:00 10/01/25 19:00 Temperature Pulse Rate 104 H Pulse Rate [Left Radial] Respiratory Rate 23 Blood Pressure 110/71 Pulse Oximetry 95 Oxygen Delivery Method MDM - Skin/Abscess/Foreign Bdy MDM Narrative Medical decision making narrative: Patient had a pustule/small abscess in the left hand knuckle interspace between the 3rd and 4th knuckles which has recurred. I performed incision and drainage with moderate pus expressed and sent for culture. Irrigated and dressed with quarter-inch packing also. I believe this will heal without antibiotics. She is to follow up with her doctor for recheck in 3-4 days. Return to the ER if worse. Discharge Plan Departure Patient Disposition: Home Clinical Impression: Abscess of hand Instructions: DI for Skin Abscess Activity Restrictions/Additional Instructions: Assessment: Left hand pustule/abscess with possible foreign material. Incision drainage in the ER. Plan: Leave dressing in place for 48 hours. Then may remove dressing, cleanse and replace dressing as needed. Follow up with your doctor for recheck in 3-4 days. This is likely to heal without antibiotics. Prescriptions: No Action propranolol 10 mg tablet 10 mg PO BID Qty: 30 0RF Referrals: Maureen Danielle FNP-BC [Primary Care Provider, Family Practice] Stand Alone Forms: Patient Portal/API
[2025-10-01 18:30] VITALS: BP 121/82; PULSE 121; RESP 16; TEMP 37.2; O2SAT 99; BMI 19.7
[2025-10-01 18:51] VITALS: BP 130/80; PULSE 109; RESP 14; O2SAT 98
[2025-10-01 18:53] VITALS: PULSE 100
[2025-10-01 19:00] VITALS: BP 110/71; PULSE 104; RESP 23; O2SAT 95
--- NOTE | 2025-10-01 19:29 | PC.NURSE ---
Handoff/shift report received from GAYLE Huerta
== END 2025-10-01 19:32 | disposition home or self-care (01) ==
PROVIDERS: Emergency Provider Emergency Medicine; PCP Nurse Practitioner Family
DX: L02.512 Cutaneous abscess of left hand (principal)
CPT/HCPCS: 10060; 87070; 87075; 87205; 99283